=== PATIENT | female | born 1980 | race Caucasian/White ===

== ENCOUNTER 2017-06-24 05:32 | Inpatient (IN) | payer OTHER ==
--- NOTE | 2017-06-24 06:10 | ED Physician Chart ---
ED Chief Complaint/HPI - Patient Information Date Seen:: 06/24/17 Time Seen:: 06:09 Chief Complaint:: Right chest pain History of Present Illness:: 37 yo female developed SOB for 3 month, right chest pain for 1 month, right chest and right face tightness for a few hours. Tired. The patient had rheumatoid arthritis on Xeljanx SR which caused some headache. The patient stopped Xeljanz a month ago. The patient's sister recently developed DVT due to varicose veins. Patient also has varicose veins. Allergies:: Allergies Allergy/AdvReac Type Severity Reaction Status Date / Time No Known Allergies Allergy Verified 06/24/17 05:54 Vitals:: Vital Signs - 8 hr 06/24/17 05:54 Temp 97.2 F HR 60 RR 16 BP 111/70 O2 Sat % 100 ED Review of Systems - Review of Systems General/Constitutional: No fever Skin: No skin lesions Head: Headache Eyes: No pain ENT: No nasal drainage Neck: No neck pain Cardio Vascular: Chest pain Pulmonary: SOB GI: No nausea, No vomiting Musculoskeletal: Bone or joint pain Psychiatric: Depression, Anxiety Neurological: No syncope ED Past Medical History - Past Medical History Past Medical History: PUD/GERD (gastric ulcers), Arthritis (RA), Other (anemia, ) Social History: Non Smoker, No Alcohol, No Drug Use Surgical History: None Psychiatricy History: Depression (since 13 yo), Other (anxiety) Family Medical History - Family Member Mother Hx Family Cancer: Yes Hx Family Hypertension: Yes ED Physical Exam - Physical Examination General/Constitutional: Awake, Alert Head: Atraumatic Eyes: PERRL Skin: No skin lesions ENMT: Nasal exam nl Neck: No nuchal rigidity Respiratory: Clear to Auscultation Cardio Vascular: RRR, NL S1 S2 Other GI comments:: Epigastric tenderness Extremities: normal strength in all extremities Neuro/Psych: No focal deficits ED Labs/Radiology/EKG Results - EKG Interpretations EKG Time:: 06:44 Rate & Rhythm: Sinus rhythm ED Assessment - Assessment General Assessment: Possible PE/DVT, with chest pain, SOB and history of rheumatoid arthritis. Her cardiac enzyme was negative UTI Assessment/Comments:: CBC, CMP, UA Trop, BNP, lipid panel CXR, EKG Urine hCG Bactrim DS x 1 BLE venous u/s to rule out DVT V/Q scan to rule out PE (CTA chest was cancelled due to allergy to shrimp) Will be under the care of Dr. Bardales at 7am ED Septic Shock - . Is Septic Shock (SBP<90, OR Lactate>4 mmol\L) present?: No - <6hrs of presentation: Vital Signs: Vital Signs - 8 hr 06/24/17 05:54 Temp 97.2 F HR 60 RR 16 BP 111/70 O2 Sat % 100
[2017-06-24 06:33] LABS: % BASOPHILS 0.2 % (0.0-2.0); % EOSINOPHILS 5.2 % (0.0-5.0); % MONOCYTES 6.1 % (2.0-10.0); % NEUTROPHILS 51.5 % (40.0-80.0); EOSINOPHILE ABSOLUTE 0.4 Th/cmm (0.1-0.4); HEMATOCRIT 37.7 % (41.0-60); HEMOGLOBIN 12.5 gm/dL (12-16); LYMPHOCYTE ABSOLUTE 2.6 Th/cmm (1.5-3.0); MEAN CELL VOLUME 87.1 fl (81-100); MEAN CORPUSCULAR HEMOGLOBIN 28.8 pg (27.0-31.0); MEAN CORPUSCULAR HGB CONC 33.1 pg (28.0-36.0); MEAN PLATELET VOLUME 7.5 fl; MONOCYTE ABSOLUTE 0.4 Th/cmm (0.3-1.0); NEUTROPHILE ABSOLUTE 3.7 Th/cmm (1.8-8.0); PLATELET COUNT 342 Th/cmm (150-400); RED BLOOD COUNT 4.32 Mil/cmm (3.80-5.10); RED CELL DISTRIBUTION WIDTH 12.5 % (11.5-20.0); WHITE BLOOD COUNT 7.1 Th/cmm (4.8-10.8)
[2017-06-24 06:33] LABS: URINE MICROSCOPIC INDICATED? YES; URINE SOURCE RANDOM
[2017-06-24] MEDS ORDERED: Pantoprazole 40 mg EC Tab PO STA (06:35)
[2017-06-24 06:37] LABS: URINE BILIRUBIN NEGATIVE (NEGATIVE); URINE BLOOD NEGATIVE (NEGATIVE); URINE GLUCOSE (UA) NEGATIVE (NEGATIVE); URINE KETONE NEGATIVE (NEGATIVE); URINE LEUKOCYTE ESTERASE SMALL (NEGATIVE); URINE NITRATE NEGATIVE (NEGATIVE); URINE PH 6.5 (4.6 - 8.0); URINE PROTEIN NEGATIVE (NEGATIVE); URINE UROBILINOGEN 0.2 E.U./dL (0.2 - 1.0)
[2017-06-24 06:39] LABS: URINE CLARITY CLEAR (CLEAR); URINE COLOR YELLOW
[2017-06-24] MEDS ORDERED: Pantoprazole 40 mg EC Tab PO ONE (06:40)
[2017-06-24 06:47] LABS: URINE BACTERIA 1+ /hpf (NONE SEEN); URINE EPITHELIAL CELLS MODERATE /lpf (FEW); URINE RBC 0-2 /hpf (0-5)
[2017-06-24 06:49] LABS: ALB/GLOB RATIO 1.1 (1.0-1.8); ALBUMIN 3.8 gm/dL (3.7-5.3); ALKALINE PHOSPHATASE 66 U/L (34-104); ANION GAP 10.2 (7.0-16.0); BILIRUBIN,TOTAL 0.3 mg/dL (0.3-1.0); BUN - UREA NITROGEN 9 mg/dL (7-25); CALCIUM SERUM 8.7 mg/dL (8.6-10.3); CARBON DIOXIDE 23.3 mEq/L (21.0-31.0); CHLORIDE 104 mEq/L (98-107); CHOLESTEROL 145 mg/dL (<200); CREATININE - SERUM 0.6 mg/dL (0.6-1.2); GFR AFRICAN-AMERICAN > 60.0 ml/min (>90); GFR NON AFRICAN-AMERICAN > 60.0 ml/min; GLUCOSE 101 mg/dL (70-105); HDL -HIGH DENSITY LIPOPROTEIN 41 mg/dL (23-92); POTASSIUM SERUM 3.5 mEq/L (3.5-5.1); SGOT 19 U/L (13-39); SGPT/ALT 24 U/L (7-52); SODIUM SERUM 134 mEq/L (136-145); TOTAL PROTEIN,SERUM 7.3 gm/dL (6.0-8.3); TRIGLYCERIDES 89 mg/dL (<150)
[2017-06-24] MEDS ORDERED: Sulfamethoxazole/TMP 800/160mg Tab PO ONE (06:53)
[2017-06-24] MEDS ORDERED: Sulfamethoxazole/TMP 800/160mg Tab ONE (06:54)
[2017-06-24 07:09] LABS: INR 0.95 (0.5-1.4); PROTHROMBIN TIME (TEST) 9.9 SECONDS (9.5-11.5)
[2017-06-24] MEDS ORDERED: Sodium Chloride 0.9% 1,000 ML IV ONE (07:21)
[2017-06-24 07:33] LABS: AMPHETAMINE URINE NEGATIVE (NEGATIVE); BARBITURATES URINE NEGATIVE (NEGATIVE); BENZODIAZEPINES QUAL URINE NEGATIVE (NEGATIVE); CANNABINOID THC NEGATIVE (NEGATIVE); COCAINE METABOLITE QUAL URINE NEGATIVE (NEGATIVE); METHADONE URINE NEGATIVE (NEGATIVE); METHAMPHETAMINES QUAL URINE NEGATIVE (NEGATIVE); OPIATES (MORPHINE) QUAL. URINE NEGATIVE (NEGATIVE); PHENCYCLIDINE (PCP) URINE NEGATIVE (NEGATIVE); TRICYCLICS (TCA) QUAL. URINE NEGATIVE (NEGATIVE)
--- NOTE | 2017-06-24 09:36 | Diagnostic Imaging Report ---
CHEST X-RAY: AP view INDICATION: Shortness of breath COMPARISON: None FINDINGS: There is mild elevation of the right hemidiaphragm There is no focal consolidation or pleural effusions The heart is normal in size. Spinal scoliosis is noted. IMPRESSION: No focal consolidation identified. No evidence of CHF.
[2017-06-24] MEDS ORDERED: Morphine Sulfate 2 mg/mL 1mL Syr IV STA (09:45)
[2017-06-24] MEDS ORDERED: Morphine Sulfate 4 mg/mL 1mL Syr IV STA (09:45)
[2017-06-24] MEDS ORDERED: Morphine Sulfate 4 mg/mL 1mL Syr ONE (09:50)
--- NOTE | 2017-06-24 10:05 | Diagnostic Imaging Report ---
Bilateral lower extremity DVT study HISTORY: Elevated D dimer COMPARISON: None Technique: Longitudinal and transverse sonographic images of the bilateral lower extremity veins were obtained with doppler analysis. FINDINGS: There is normal compressibility, augmentation and phasicity of the bilateral common femoral, superficial femoral, popliteal, and posterior tibial veins. No thrombus is visualized. IMPRESSION: No evidence of thrombus within the bilateral lower extremity veins.
[2017-06-24] MEDS: Albuterol Nebulizer 2.5mg/3mL HHN SCH (23:14)
--- NOTE | 2017-06-25 00:01 | Consultation ---
DATE OF CONSULTATION: 06/24/2017 REFERRING PHYSICIAN: Dr. Bergeron. Thank you very much, Dr. Bergeron, for this consultation. HISTORY OF PRESENT ILLNESS: This is a 37-year-old female, resting. She stated having some shortness of breath for the past 3 months, which has been getting worse. She said also he has history of fibromyalgia and some anxiety and chronic pain and arthritis. She has some chest pain as well as some shortness of breath. She is on room air, appears to be comfortable. Troponin so far and EKG been negative. Labs have been negative. The patient said when she was a heavier, she used an inhaler and was helping her breathe better. She was not formally diagnosed with asthma. PAST MEDICAL HISTORY: As above. SOCIAL HISTORY: Denies any smoking, drinking or drug use. PHYSICAL EXAMINATION: GENERAL: Awake, alert, not in acute distress. VITAL SIGNS: Temperature is 97.1, pulse 65, respiration 19, blood pressure is 112/66, saturation 100% on room air. HEENT: Atraumatic, normocephalic. Pupils are equal and reactive to light and accommodation. Ears, nose and throat are normal. NECK: Supple. No JVD. CHEST: There are good breath sounds bilaterally, wheezing or crackles. Some tenderness in anteriorly at sternal area. HEART: Regular rate and rhythm. ABDOMEN: Soft. EXTREMITIES: No edema. LABORATORY DATA: WBC 7.1, hemoglobin 12.5, hematocrit 37.7, platelets is 342. Sodium 130, potassium 3.5, BUN 9, creatinine 0.6. Troponin negative x 2. UA was negative and a small leukoesterase. Urine drug screen is negative. Venous Doppler of lower extremities, negative. Chest x-ray is negative. V/Q scan is still pending and did have mildly elevated. IMPRESSION: This is a 37-year-old female with atypical chest pain and shortness of breath with possible underlying airway disease. It is likely fibromyalgia causing the above pain symptoms, causing the shallow breathing and anxiety as well. PLAN: 1. Continue pain treatment. 2. Add nebulizer treatment. 3. Follow up on the VQ scan. If negative, the patient probably can be discharged tomorrow on some pain medication. Follow her primary doctor for further treatment of her fibromyalgia. Thank you very much. We will follow the patient with you. JOB# [id number]
--- NOTE | 2017-06-25 07:49 | Diagnostic Imaging Report ---
Nuclear medicine VQ scan HISTORY: Shortness of breath, rule out pulmonary embolus COMPARISON: Chest x-ray 06/24/2017 Technique/procedure: For the ventilation portion of examination 42.1 mCi of technetium labeled DTPA was administered via aerosol and multiple scintigraphic images of the lungs were obtained. For the perfusion portion of examination 5.4 millicuries of technetium 99 labeled MAA was administered intravenously and multiple scintigraphic images of the lungs were obtained. Normal perfusion and ventilation is demonstrated. No V/Q mismatches identified. IMPRESSION: Negative VQ scan for pulmonary embolus.
[2017-06-25] MEDS: Albuterol Nebulizer 2.5mg/3mL HHN SCH (08:43)
--- NOTE | 2017-06-27 22:15 | History & Physical ---
ADMIT DATE: 06/24/2017 REASON FOR ADMISSION: Chest pain. HISTORY OF PRESENT ILLNESS: A 37-year-old for underlying history of rheumatoid arthritis, who was brought to Emergency Room for evaluation of chest pain for the past 2 days. The patient describes her pain was more of generalized, nonradiating, no associated dizziness, diaphoresis or shortness of breath. The patient was evaluated in the Emergency Room. The patient noticed to have elevated D-dimer, so the patient was admitted for further treatments. PAST MEDICAL HISTORY: Rheumatoid arthritis. PAST SURGICAL HISTORY: None. SOCIAL HISTORY: Lives at home. Denies any alcohol, tobacco or street drug use. CURRENT MEDICATIONS: Per medication list reviewed. ALLERGIES: No known drug allergies. REVIEW OF SYSTEMS: As per HPI, 12-point system review appears negative. PHYSICAL EXAMINATION: VITAL SIGNS: Temperature 98.2, pulse 74, respiration 17, blood pressure 99/52, oxygen 100% on room air. HEENT: Unremarkable. HEART: S1, S2 normal. LUNGS: Clear to auscultation bilaterally. ABDOMEN: Soft, nontender, no guarding. NEUROLOGIC: The patient moves all extremities. No focal deficits. EXTREMITIES: Negative for edema, no calf tenderness noted. AVAILABLE LABORATORY DATA: Has been reviewed. ASSESSMENT: 1. Chest pain with elevated D-dimer, rule out pulmonary embolism. 2. Rheumatoid arthritis. PLAN: The patient admitted to tele unit. Cardiology, Pulmonology was consulted. The patient's V/Q scan ordered. We will follow up on the special recommendations. The patient stated that she has been off the rheumatoid arthritis medications for the last few months. The patient states that she has a followup with the insurance checker next week. The patient is currently asymptomatic. We will follow up on the pending workup. JOB# [id number]
--- NOTE | 2017-07-03 12:50 | Cardiology ---
06/24/2017 ECHOCARDIOGRAM REPORT The patient of Dr. Elyssa Ruggiero. M-MODE ECHOCARDIOGRAM: Mitral valve, anterior leaflet of mitral valve shows normal excursion, EF velocity. Posterior leaflet of mitral valve shows normal excursion. Left ventricular posterior wall shows increased thickness, normal excursion. Interventricular septum shows increased thickness, normal excursion, hypertrophy of the left ventricle, ejection fraction 55%. Left atrium normal. Aortic root shows normal dimension, normal excursion of aortic leaflets. CONCLUSION: Minimal hypertrophy of the left ventricle, ejection fraction 55%. 2D ECHO ON THE SAME PATIENT: Long axis view showed normal sized left ventricle with hypertrophy of the left ventricle. Left atrium normal. Aortic root shows normal dimension, normal excursion of aortic leaflets. Short axis view of mitral valve normal. Short axis view of aortic valve normal. Apical four chamber view showed normal sized left ventricle, left atrium, right ventricle, right atrium, tricuspid and mitral valve. Ejection fraction 55%. CONCLUSION: Hypertrophy of the left ventricle, mild; ejection fraction 55%. Doppler study shows mild mitral regurgitation, mild tricuspid regurgitation. [facility]# [id number]
--- NOTE | 2017-07-04 12:04 | Discharge Summary ---
DATE OF DISCHARGE: 06/25/2017 FINAL DIAGNOSES: 1. Atypical chest pain. 2. Rheumatoid arthritis. 3. Elevated D-dimer. V/Q scan negative for PE. HOSPITAL COURSE: This is a 37-year-old female admitted for evaluation of chest pain with elevated D-dimer. Cardiology, pulmonology evaluated the patient. V/Q scan was negative. The patient's troponins were negative. The patient remained asymptomatic during the hospitalization. Overall, hospitalization was uneventful. After clinical improvement, was medically discharge the patient with outpatient's . 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 DISCHARGE CONDITION: Stable. DISCHARGE MEDICATIONS: Please see medication reconciliation list on discharge. FOLLOWUP: Primary MD as an outpatient. JOB# [id number]
== END 2017-06-25 10:02 | disposition home or self-care (01) | DRG 313 ==
LOC: ER 05:32 → TELE 11:25
PROVIDERS: ADMIT Family Medicine; ATTEND Family Medicine
DX: R07.89 Other chest pain (principal); N39.0 Urinary tract infection, site not specified; F32.9 Major depressive disorder, single episode, unspecified; K21.9 Gastro-esophageal reflux disease without esophagitis; M06.9 Rheumatoid arthritis, unspecified; M79.7 Fibromyalgia; G89.29 Other chronic pain; Z82.49 Family history of ischemic heart disease and other diseases of the circulatory system; Z87.11 Personal history of peptic ulcer disease; Z71.89 Other specified counseling
CPT/HCPCS: 36415-UA; 71045-TC; 80053-TC; 80061-TC; 80307; 81001-TC; 81025-TC; 83690-TC; 83880-TC; 84443-TC; 84484-TC; 85025-TC; 85379-TC; 85610-TC; 93005; 93970-TC-50; 94640; 94760; 96374; A9540; A9567; J7030; J7613; Z7610